=== PATIENT | male | born 1935 ===

== ENCOUNTER 2018-09-29 20:20 | Emergency (ER) | payer OTHER ==
[2018-09-29 21:11] VITALS: BP 98/58; PULSE 65; RESP 20; TEMP 98.2; O2SAT 98
--- NOTE | 2018-09-29 23:10 | C.PDOC ---
History Of Present Illness 82 year old male with PMHx of arthritis presents to the ED c/o bilateral knee pain- chronic and right ankle pain and swelling started today. Patient denies injury, fall, trauma, weakness, numbness, SOB, no recent prolonged travel, no recent immobility state Time Seen by Provider: 09/29/18 22:25 Chief Complaint (Nursing): Lower Extremity Problem/Injury History Per: Patient History/Exam Limitations: no limitations Onset/Duration Of Symptoms: Days Current Symptoms Are (Timing): Still Present Recent travel outside of the [place]: No Additional History Per: Patient - Knee Description Of Injury: Other Currently Unable To: Bend Or Move Past Medical History Reviewed: Historical Data, Nursing Documentation, Vital Signs Vital Signs: Last Vital Signs Temp 98.2 F 09/29/18 21:07 Pulse 65 09/29/18 21:07 Resp 20 09/29/18 21:07 BP 98/58 L 09/29/18 21:07 Pulse Ox 98 09/29/18 21:07 - Medical History PMH: Arthritis Surgical History: No Surg Hx Family History: States: Unknown Family Hx - Social History Hx Alcohol Use: No Hx Substance Use: No - Immunization History Hx Tetanus Toxoid Vaccination: No Hx Influenza Vaccination: No Hx Pneumococcal Vaccination: No Review Of Systems Constitutional: Negative for: Fever Respiratory: Negative for: Shortness of Breath Musculoskeletal: Positive for: Leg Pain (b/l knee), Other (right ankle) Skin: Negative for: Rash Neurological: Negative for: Weakness, Numbness Physical Exam - Physical Exam Appears: Non-toxic, No Acute Distress Skin: Normal Color, Warm, Dry Head: Atraumatic, Normacephalic Eye(s): bilateral: Normal Inspection Neck: Normal ROM, Supple Chest: Symmetrical Cardiovascular: Rhythm Regular Respiratory: Normal Breath Sounds, No Rales, No Rhonchi, No Wheezing Extremity: Normal ROM, Tenderness (bilateral lateral malleolus and proximal forefoot), No Pedal Edema, No Calf Tenderness, Capillary Refill (< 2 seconds), No Deformity, Swelling (bilateral lateral malleolus and proximal forefoot), Other (bilateral knees buggy joints) Pulses: Left Dorsalis Pedis: Normal, Right Dorsalis Pedis: Normal Neurological/Psych: Oriented x3, Normal Speech, Normal Cognition, Normal Motor, Normal Sensation Gait: Steady (with a limp due to pain) ED Course And Treatment O2 Sat by Pulse Oximetry: 98 (On RA) Pulse Ox Interpretation: Normal Progress Note: Plan: - Tylenol 650 mg PO. - Ultram 50 mg PO. Patient is requesting pain medications, tylenol and ultram given. Patient was placed in BREE wrap for support and is ambulatory with cane in ED. Pt advised to follow up with PMD in 1-2 days Reassessment Condition: Improved Disposition Counseled Patient/Family Regarding: Diagnosis, Need For Followup, Rx Given - Disposition Referrals: Shaik Diaz MD [Staff Provider] - Disposition: HOME/ ROUTINE Disposition Time: 23:07 Condition: STABLE Additional Instructions: Please follow up with PMD Take medication as directed Return to ER if worse Prescriptions: Tramadol HCl [Ultram] 50 mg PO Q6H #14 tab Instructions: Joint Pain Forms: [facility] (Pashto) - Clinical Impression Clinical Impression: Arthralgia, Ankle pain, right - PA / [employer] / Resident Statement MD/DO has reviewed & agrees with the documentation as recorded. - Scribe Statement The provider has reviewed the documentation as recorded by the Scribe Wes Falcon All medical record entries made by the Scribe were at my direction and personally dictated by me. I have reviewed the chart and agree that the record accurately reflects my personal performance of the history, physical exam, medical decision making, and the department course for this patient. I have also personally directed, reviewed, and agree with the discharge instructions and disposition.
== END 2018-09-29 23:20 | disposition home or self-care (01) ==
LOC: C.ER 20:20
DX: M25.571 Pain in right ankle and joints of right foot (principal)

== ENCOUNTER 2019-01-01 11:56 | Emergency (ER) | payer OTHER | END 2019-01-01 16:48 | disposition home or self-care (01) | LOC: C.ER 11:56 ==